=== PATIENT | male | born 1985 | race African-American/Black ===

== ENCOUNTER 2018-01-21 19:09 | Observation (INO) | payer SELFPAY ==
[~2018-01-21] VITALS: Ht 185.4 cm; Wt 113.9 kg
[~2018-01-21 19:09] MED LIST: AGM875 PO
[2018-01-21] MEDS ORDERED: ONDANSETRON INJ 2 MG/ML 2 ML VIAL IV STA (20:34)
[2018-01-21] MEDS ORDERED: MoRPHine SULFATE 10 MG/ML CARP/VIAL IV STA (20:34)
[2018-01-21] MEDS ORDERED: SODIUM CHLORIDE 0.9% 1000ML 1,000 ML IV ONE (20:45)
--- NOTE | 2018-01-21 21:20 | DIAGNOSTIC IMAGING REPORT ---
CT SCAN OF THE ABDOMEN AND PELVIS WITHOUT CONTRAST CLINICAL HISTORY: Right flank pain COMPARISON STUDY: No previous studies for comparison. TECHNIQUE: CT scan of the abdomen and pelvis was performed from the lung bases to the proximal femurs. Images are reviewed in the axial, sagittal, and coronal planes. IV contrast was not administered for this examination. A dose lowering technique was utilized adhering to the principles of ALARA. CT DOSE: 1732.67 mGy.cm FINDINGS: Lower chest: The heart is normal in size and configuration, without pericardial effusion. The lung bases and pleural spaces are clear. Liver: The unenhanced liver is normal in size, contour, and attenuation. There is no intrahepatic biliary ductal dilatation. Gallbladder: Unremarkable. Spleen: Normal in size and attenuation. Pancreas: Unremarkable. Adrenal glands: Unremarkable. Kidneys: No renal, ureteral, or bladder calculi are visualized. There is no hydronephrosis. Bowel: There are no transition zones indicate bowel obstruction. There is no acute diverticulitis. There is a dilated fluid-filled appendix measuring 14 mm. Is contains an appendicolith. There is periappendiceal stranding. The findings are indicative of acute appendicitis. Peritoneum: There is minimal free pelvic fluid. No free intraperitoneal air is visualized Vasculature: The abdominal aorta is normal in course and caliber. Adenopathy: None. Pelvic viscera: The bladder, and pelvic viscera are unremarkable. Skeletal structures: No destructive osseous lesions are seen. IMPRESSION: 1. Dilated fluid-filled appendix with an appendicolith and periappendiceal stranding. The findings are indicative of acute appendicitis and surgical consultation is recommended 2. No renal, ureteral, or bladder calculi identified 3. No evidence of bowel obstruction. No evidence of free air Electronically signed by: Michele Luna M.D. 01/21/2018 9:19 PM Dictated Date/Time: 01/21/2018 9:14 PM
[2018-01-21] MEDS ORDERED: CEFOXITIN SOD 2 GM VIAL IV STA (21:35)
[2018-01-21 21:45] LABS: BASO % 0.1 %; BASO ABS # 0.01 K/uL (0-0.2); EOS % 0.1 %; EOS ABS # 0.01 K/uL (0-0.5); HEMATOCRIT 40.1 % (42-52); HEMOGLOBIN 13.7 g/dL (14.0-18.0); IG# 0.02 K/uL (0.00-0.02); LYMPH % 8.5 %; LYMPH ABS # 0.68 K/uL (1.2-3.4); MEAN CELL VOLUME 84.2 fL (80-100); MEAN CORPUSCULAR HEMOGLOBIN 28.8 pg (25-34); MEAN CORPUSCULAR HGB CONC 34.2 g/dl (32-36); MONO % 2.1 %; MONO ABS # 0.17 K/uL (0.11-0.59); NEUT % 88.9 %; NEUT ABS # 7.11 K/uL (1.4-6.5); PLATELET COUNT 273 K/uL (130-400); RED CELL DISTRIBUTION WIDTH CV 13.7 % (11.5-14.5); RED CELL DISTRIBUTION WIDTH SD 41.8 fL (36.4-46.3)
[2018-01-21] MEDS ORDERED: MoRPHine SULFATE 4 MG/ML 1 ML CARP\\VIAL IV ONE (21:45)
[2018-01-21] MEDS ORDERED: HYDROmorphone INJ 2 MG/ML SYR/VIAL IV PRN ×2 (22:00→23:30)
[2018-01-21] MEDS ORDERED: ONDANSETRON INJ 2 MG/ML 2 ML VIAL IV PRN ×2 (22:00→23:30)
[2018-01-21] MEDS ORDERED: PHENYLEPHRINE 100MCG/ML 5ML SYR IV PRN (22:00)
[2018-01-21] MEDS ORDERED: ATROPINE SULFATE 0.1 MG/ML 5ML SYR IV PRN (22:00)
[2018-01-21] MEDS ORDERED: EpHEDrine SULFATE INJ 50 MG/ML AMP IV PRN (22:00)
--- NOTE | 2018-01-21 22:01 | History and Physical ---
History & Physical Date Jan 21, 2018. Chief Complaint Acute Appendicitis History of Present Illness The patient is a 32 year old male with complaints of abdominal pain which began today around 2pm. Patient reports he last ate at 1pm and the pain started in his periumbilical area soon after. States the pain is currently periumbilical and RLQ. Reports nausea/vomiting earlier today. Denies hematemesis. Denies fever /chills. He has been urinating and moving his bowels without issue. Denies previous abdominal surgeries. Denies regular medication use or other health problems. Reports no issues with anesthesia in the past (wisdom teeth). Denies use of blood thinning or anticoagulant medications. WBC WNL w/ left shift. CT shows 14mm dilated appendix with periappendiceal stranding and appendicolith. Findings concerning for acute appendicitis Additional History Hepatic Disease: No Endocrine Disorder: No Kidney Disease: No Hypertension: No Heart Disease: No Bleeding Tendencies: No Infectious Diseases: No Allergies Coded Allergies: No Known Allergies (Unverified Allergy, Mild, 11/12/07) Home Medications Scheduled Amoxicillin/Clavulanate Potas (Augmentin *), 1 TAB PO BID Miscellaneous Medications None (Patient States No Home Meds) Physical Examination Skin: warm/dry Head: normocephalic, atraumatic Neck: trachea midline Respiratory/Chest: normal breath sounds, no respiratory distress Cardiovascular: regular rate, rhythm, no murmur Abdomen / GI: normal bowel sounds, + pertinent finding (periumbilical and RLQ TTP) Neurologic/Psych: alert, oriented x 3 Diagnosis Acute Appendicitis ASA Classification: ASA Class I Plan of Treatment Laparoscopic appendectomy possible open with Dr. Augusto geller. Risks, benefits, alternatives to the procedure discussed - questions answered. NPO, IV Mefoxin 2g, SCDs. OR notified.
[2018-01-21] MEDS ORDERED: BUPIVACAINE/EPINEPHRINE 0.5% MPF 1:200,000 30 ML VIAL ONE (22:03)
[2018-01-21 22:06] LABS: ALBUMIN 4.1 gm/dl (3.4-5.0); CALCIUM 9.4 mg/dl (8.5-10.1); CREATININE 1.04 mg/dl (0.60-1.40); POTASSIUM 3.4 mmol/L (3.5-5.1)
[2018-01-21] MEDS ORDERED: LIDOCAINE HCL 2% 2 ML VIAL (20MG/ML) ONE (22:06)
[2018-01-21] MEDS ORDERED: PROPOFOL IV EMULSION 10 MG/ML 20 ML VIAL IV ONE (22:06)
[2018-01-21] MEDS ORDERED: FENTANYL CITRATE INJ 50 MCG/1 ML 2 ML VIAL ONE (22:06)
[2018-01-21] MEDS ORDERED: ROCURONIUM BROMID 50MG/5ML SYR ONE (22:07)
[2018-01-21] MEDS ORDERED: SUCCINYLCHOLINE 100MG/5ML SYR IV ONE (22:07)
--- NOTE | 2018-01-21 23:03 | EMERGENCY ROOM VISIT NOTE ---
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 History of Present Illness The patient is a 32 year old male who presents to the Emergency Room with complaints of abdominal pain around his marika that began about 6-1/2 hours ago at 2 PM. Patient states that he had lunch today around 1 PM, and shortly thereafter began having some cramping pain in his abdomen. He had a little bit of nausea but no vomiting or diarrhea. He is not taking anything for the pain which he currently rates an 8/10. At times the pain will be worse on the right, but it does not cross over to the left. The patient has never had abdominal surgery in the past. No history of kidney stones. No difficulty with urinating or using the bathroom. He does not take blood thinners. He does not have history of chronic medical disease. Review of Systems More than 10 systems were reviewed and otherwise negative with the exception of history of present illness. Past Medical/Surgical History No chronic medical disease Family History No pertinent family history Social History Smoking Status: Never Smoker Housing Status: lives with friends Current/Historical Medications Scheduled Amoxicillin/Clavulanate Potas (Augmentin *), 1 TAB PO BID Miscellaneous Medications None (Patient States No Home Meds) Physical Exam Vital Signs Date Time Temp Pulse Resp B/P (MAP) Pulse Ox O2 Delivery O2 Flow Rate FiO2 01/21/18 21:37 81 18 137/84 98 Room Air 01/21/18 19:26 36.7 73 20 131/70 98 Room Air Physical Exam VITALS: Vitals are noted on the nurse's note and reviewed by myself. Vital signs stable. GENERAL: Well-developed, well-nourished, male who appears in moderate to severe discomfort secondary to his abdominal discomfort. He is holding his abdomen with his right hand. He is cooperative with the exam. NECK: Supple without nuchal rigidity. No lymphadenopathy. No thyromegaly. Cervical spine is nontender. HEART: Regular rate and rhythm without murmurs gallops or rubs. LUNGS: Clear to auscultation bilaterally without wheezes, rales or rhonchi. No retractions or accessory muscle use. ABDOMEN: Positive normal bowel sounds x 4. Soft with diffuse right-sided right lower quadrant abdominal pain. No rebound or guarding. No CVA tenderness. MUSCULOSKELETAL: No muscle atrophy, erythema, or edema noted. Full range of motion in all extremities. Medical Decision & Procedures ER Provider Diagnostic Interpretation: CT SCAN OF THE ABDOMEN AND PELVIS WITHOUT CONTRAST CLINICAL HISTORY: Right flank pain COMPARISON STUDY: No previous studies for comparison. TECHNIQUE: CT scan of the abdomen and pelvis was performed from the lung bases to the proximal femurs. Images are reviewed in the axial, sagittal, and coronal planes. IV contrast was not administered for this examination. A dose lowering technique was utilized adhering to the principles of ALARA. CT DOSE: 1732.67 mGy.cm FINDINGS: Lower chest: The heart is normal in size and configuration, without pericardial effusion. The lung bases and pleural spaces are clear. Liver: The unenhanced liver is normal in size, contour, and attenuation. There is no intrahepatic biliary ductal dilatation. Gallbladder: Unremarkable. Spleen: Normal in size and attenuation. Pancreas: Unremarkable. Adrenal glands: Unremarkable. Kidneys: No renal, ureteral, or bladder calculi are visualized. There is no hydronephrosis. Bowel: There are no transition zones indicate bowel obstruction. There is no acute diverticulitis. There is a dilated fluid-filled appendix measuring 14 mm. Is contains an appendicolith. There is periappendiceal stranding. The findings are indicative of acute appendicitis. Peritoneum: There is minimal free pelvic fluid. No free intraperitoneal air is visualized Vasculature: The abdominal aorta is normal in course and caliber. Adenopathy: None. Pelvic viscera: The bladder, and pelvic viscera are unremarkable. Skeletal structures: No destructive osseous lesions are seen. IMPRESSION: 1. Dilated fluid-filled appendix with an appendicolith and periappendiceal stranding. The findings are indicative of acute appendicitis and surgical consultation is recommended 2. No renal, ureteral, or bladder calculi identified 3. No evidence of bowel obstruction. No evidence of free air Laboratory Results 01/21/18 21:00 Red Blood Count 4.76, Mean Corpuscular Volume 84.2, Mean Corpuscular Hemoglobin 28.8, Mean Corpuscular Hemoglobin Concent 34.2, Mean Platelet Volume 9.0, Neutrophils (%) (Auto) 88.9, Lymphocytes (%) (Auto) 8.5, Monocytes (%) (Auto) 2.1, Eosinophils (%) (Auto) 0.1, Basophils (%) (Auto) 0.1, Neutrophils # (Auto) 7.11, Lymphocytes # (Auto) 0.68, Monocytes # (Auto) 0.17, Eosinophils # (Auto) 0.01, Basophils # (Auto) 0.01 01/21/18 21:00 Test 01/21/18 21:00 01/21/18 21:30 White Blood Count 8.00 K/uL (4.8-10.8) Red Blood Count 4.76 M/uL (4.7-6.1) Hemoglobin 13.7 g/dL (14.0-18.0) Hematocrit 40.1 % (42-52) Mean Corpuscular Volume 84.2 fL (80-100) Mean Corpuscular Hemoglobin 28.8 pg (25-34) Mean Corpuscular Hemoglobin Concent 34.2 g/dl (32-36) Platelet Count 273 K/uL (130-400) Mean Platelet Volume 9.0 fL (7.4-10.4) Neutrophils (%) (Auto) 88.9 % Lymphocytes (%) (Auto) 8.5 % Monocytes (%) (Auto) 2.1 % Eosinophils (%) (Auto) 0.1 % Basophils (%) (Auto) 0.1 % Neutrophils # (Auto) 7.11 K/uL (1.4-6.5) Lymphocytes # (Auto) 0.68 K/uL (1.2-3.4) Monocytes # (Auto) 0.17 K/uL (0.11-0.59) Eosinophils # (Auto) 0.01 K/uL (0-0.5) Basophils # (Auto) 0.01 K/uL (0-0.2) RDW Standard Deviation 41.8 fL (36.4-46.3) RDW Coefficient of Variation 13.7 % (11.5-14.5) Immature Granulocyte % (Auto) 0.3 % Immature Granulocyte # (Auto) 0.02 K/uL (0.00-0.02) Anion Gap 8.0 mmol/L (3-11) Est Creatinine Clear Calc Drug Dose 136.1 ml/min Estimated GFR () 110.4 Estimated GFR (Non- 95.2 BUN/Creatinine Ratio 13.7 (10-20) Calcium Level 9.4 mg/dl (8.5-10.1) Total Bilirubin 0.4 mg/dl (0.2-1) Aspartate Amino Transf (AST/SGOT) 17 U/L (15-37) Alanine Aminotransferase (ALT/SGPT) 26 U/L (12-78) Alkaline Phosphatase 62 U/L (45-117) Total Protein 8.0 gm/dl (6.4-8.2) Albumin 4.1 gm/dl (3.4-5.0) Globulin 3.9 gm/dl (2.5-4.0) Albumin/Globulin Ratio 1.1 (0.9-2) Lipase 144 U/L (73-393) Urine Color YELLOW Urine Appearance CLOUDY (CLEAR) Urine pH 7.0 (4.5-7.5) Urine Specific [place] 1.033 (1.000-1.030) Urine Protein NEG (NEG) Urine Glucose (UA) NEG (NEG) Urine Ketones NEG (NEG) Urine Occult Blood NEG (NEG) Urine Nitrite NEG (NEG) Urine Bilirubin NEG (NEG) Urine Urobilinogen NEG (NEG) Urine Leukocyte Esterase TRACE (NEG) Urine WBC (Auto) 5-10 /hpf (0-5) Urine RBC (Auto) 0-4 /hpf (0-4) Urine Hyaline Casts (Auto) 1-5 /lpf (0-5) Urine Epithelial Cells (Auto) >30 /lpf (0-5) Urine Bacteria (Auto) NEG (NEG) Urine Renal Epithelial Cells /lpf (0-5) Medications Administered Medications (Trade) Dose Ordered Sig/Sharmila Route Start Time Stop Time Status Last Admin Dose Admin Morphine Sulfate (MoRPHine SULFATE INJ) 8 mg NOW STAT IV 01/21/18 20:34 01/21/18 20:36 DC 01/21/18 20:57 8 MG Sodium Chloride 1,000 ml @ 999 mls/hr Q1H1M ONCE IV 01/21/18 20:45 01/21/18 21:45 DC 01/21/18 20:58 999 MLS/HR Ondansetron HCl (Zofran Inj) 4 mg NOW STAT IV 01/21/18 20:34 01/21/18 20:37 DC 01/21/18 20:57 4 MG Morphine Sulfate (MoRPHine SULFATE INJ) 4 mg NOW ONCE IV 01/21/18 21:45 01/21/18 21:46 DC 01/21/18 21:49 4 MG ED Course Physical exam and history were performed. Nursing notes, EMR, and Medication List were personally reviewed. Patient appears to have abdominal pain that began several hours ago. The patient states that most of his pain is in the periumbilical area, however he is tender in the right side and right lower quadrant on exam. IV access was established and labs were obtained. The patient was given IV morphine, IV Zofran, and IV fluids. CT scan was performed and the patient was placed n.p.o. The patient's blood work is as above and was reviewed. He does not have a significantly elevated white blood cell count at this time, but he does have a left shift. He does not have a significant anemia or gross electrolyte imbalance. Lipase and transaminases are not diagnostic. His CT scan reveals a 14 mm appendix with appendicolith, very concerning for acute appendicitis. The case was discussed with the on-call surgical team. The patient will be started on Mefoxin, and the surgical team will evaluate the patient here in the department. Please see their dictation for further patient course, plan, and disposition. The chart was completed utilizing [employer] Speech Voice Recognition Software. Grammatical errors, random word insertions, pronoun errors, and incomplete sentences are an occasional consequence of this system due to software limitations, ambient noise, and hardware issues. Any formal questions or concerns about the content, text, or information contained within the body of this dictation should be directly addressed to the provider for clarification. . Medical Decision Differential diagnosis: Etiologies such as appendicitis, diverticulitis, PUD, biliary pathology, UTI, pancreatitis, obstruction, mesenteric ischemia, aortic pathology, infections, inflammatory bowel disease, renal colic, as well as others were entertained. Impression Primary Impression: Acute appendicitis Departure Information Referrals Hima Livingston MD (PCP) Patient Instructions My [facility]
--- NOTE | 2018-01-21 23:09 | [facility] Post Operative Brief Note ---
Immediate Operative Summary Operative Date Jan 21, 2018. Pre-Operative Diagnosis Acute Appendicitis Post-Operative Diagnosis Acute Appendicitis Procedure(s) Performed Laparoscopic Appendectomy Surgeon Dr. Casas Workers Compensation Claims Analyst Surgeon(s) En Holm PA-C Estimated Blood Loss 10cc Findings Consistent with Post-Op Diagnosis Specimens A. Appendix Anesthesia Type General Complication(s) none
--- NOTE | 2018-01-21 23:18 | [facility] Operative Report ---
Operative Report Operative Date Jan 21, 2018. Pre-Operative Diagnosis Acute Appendicitis Post-Operative Diagnosis Acute Appendicitis Procedure(s) Performed Laparoscopic Appendectomy Surgeon Dr. Casas Reinsurance Claims Analyst Surgeon(s) En Holm PA-C Estimated Blood Loss 10cc Specimens A. Appendix Anesthesia Type General Complication(s) none Description of Procedure After informed consent was obtained the patient was taken to the operating room and placed in supine position. After successful intubation a Rojas catheter was placed and the left arm was tucked. A Rojas catheter was inserted sterilely. I began by making a periumbilical incision with an 11 blade scalpel and carried this down through the soft tissue using electrocautery. The anterior rectus fascia was opened using electrocautery and 2 #0 Vicryl stay sutures were placed. The peritoneum was elevated using hemostats and incised under direct vision using a Metzenbaum scissor. A finger sweep was performed. A 12 mm Rizzo trocar was placed and the abdomen was insufflated to 18 mmHg. A laparoscope was inserted and the abdomen was examined in 360. A suprapubic 5 mm port and a left lower quadrant 12 mm port were placed under direct vision. The patient was air planed to the left as well as placed in a slight Trendelenburg position. We began by looking in the right lower quadrant. We were able to readily identify the appendix and it was grossly inflamed. It had not perforated. There is a small amount of purulent fluid in the right lower quadrant and the pelvis. We immediately irrigated and suctioned this out. I was able to use primarily blunt dissection to pull the appendix away from the right lower quadrant sidewall. I was then able to use a SANJAY brown cartridge stapler to transect the mesentery of the appendix. I was then able to mobilize the appendix and transect it with a brown cartridge 60 mm SANJAY at its base with the cecum. It was then placed into an Endo Catch bag and removed from the camera port site. We thoroughly irrigated the right lower quadrant as well as the pelvis. There was adequate hemostasis. I ran the small bowel backwards from the terminal ileum for about 6 feet all of which was normal. All the peritoneal surfaces were normal. Small/ large bowel, liver, stomach etc. all appeared grossly normal. We did a final irrigation and then removed all the trochars and desufflated the abdomen. The fascia of the camera port as well as the left lower quadrant were closed using 0 Vicryl in [id number] fashion. Wounds were all irrigated and closed using 4-0 Monocryl. Marcaine was injected around them for postoperative analgesia and skin glue used as a dressing. The patient was awakened extubated and transferred to recovery in stable condition. My physician's customer assistant was present through the entire case. he assisted with prepping the patient and helped with exposure for port placement, helped run the camera and helped with fascial/wound closure at the end of the procedure as well as dressing placement. I attest to the content of the Intraoperative Record and any orders documented therein. Any exceptions are noted below. I attest to the content of the Intraoperative Record and any orders documented therein. Any exceptions are noted below.
[2018-01-21] MEDS ORDERED: HYDROCODONE/ACETAMIN 5/325MG TAB PO PRN (23:30)
--- NOTE | 2018-01-21 23:36 | Anesthesiology Progress Note ---
Anesthesia Post Op Note Date & Time Jan 21, 2018 at 23:35 Vital Signs Pain Intensity: 0 Vital Signs Past 12 Hours Date Time Temp Pulse Resp B/P (MAP) Pulse Ox O2 Delivery O2 Flow Rate FiO2 01/21/18 21:37 81 18 137/84 98 Room Air 01/21/18 19:26 36.7 73 20 131/70 98 Room Air Notes Mental Status: alert / awake / arousable, participated in evaluation Pt Amnestic to Procedure: Yes Nausea / Vomiting: adequately controlled Pain: adequately controlled Airway Patency, RR, SpO2: stable & adequate BP & HR: stable & adequate Hydration State: stable & adequate Anesthetic Complications: no major complications apparent
--- NOTE | 2018-01-21 23:41 | Discharge Instructions ---
Discharge Instructions Date of Service Jan 21, 2018. Admission Reason for Admission: Stomach Pain Discharge Discharge Diagnosis / Problem: Acute Appendicitis Discharge Goals Goal(s): Decrease discomfort, Improve function Activity Recommendations Activity Limitations: as noted below Lifting Limitations: no more than 10 pounds, until after follow-up appointment Exercise/Sports Limitations: until after follow-up appointment May Resume Sexual Activity: after follow-up appointment Shower/Bathe: tomorrow Driving or Machine Use: resume 3 days after discharge (Please do not drive while using narcotic pain medication) . Instructions / Follow-Up Instructions / Follow-Up You have surgical glue covering your incisions. Please allow this to fall off on its own. You have been prescribed [place] to take as needed for pain relief. Please use as directed. Follow-up with Dr. Casas in 1-2 weeks. Please contact our office at to schedule an appointment if you have not done so already. Please contact our office with any further questions or concerns. [facility] [place] [employer]. [address] [place] [address]. Current Hospital Diet Patient's current hospital diet: Clear Liquid Diet Discharge Diet Recommended Diet: Regular Diet Procedures Procedures Performed: Laparoscopic Appendectomy Pending Studies Studies pending at discharge: yes List of pending studies: pathology Medical Emergencies . Who to Call and When: Medical Emergencies: If at any time you feel your situation is an emergency, please call 911 immediately. . Non-Emergent Contact Non-Emergency issues call your: Primary Care Provider, Surgeon Call Non-Emergent contact if: you have a fever, temperature is above 101.5, your pain is not controlled, your pain is worsening, wound has increased drainage, wound has increased redness . "Provider Documentation" section prepared by En Holm. . [place] Drug Monitoring Program Search Results: patient reviewed within database, no issues identified
[2018-01-22] VITALS (8 sets, daily range): BP systolic 112–143; BP diastolic 62–73; PULSE 59–83; TEMP 36.9–37.3; O2SAT 93–98; Ht 185.4 cm; Wt 113.9 kg
[2018-01-22] MEDS ORDERED: ACETAMINOPHEN IV 100 ML IV SCH
[2018-01-22] MEDS ORDERED: LACTATED RINGER'S 1000ML 1,000 ML IV SCH (01:00)
[2018-01-22] MEDS: ACETAMINOPHEN IV 100 ML IV SCH ×2 (01:04→07:42)
[2018-01-22] MEDS ORDERED: IV FLUIDS COMPLETED PRN (01:45)
[2018-01-22] MEDS: HYDROmorphone INJ 0.5 MG/0.5 ML SYR IV PRN ×2 (02:14→06:07)
[2018-01-22] MEDS: CEFOXITIN IV 2,000 MG in DEXTROSE 5% 50ML 50 ML IV SCH ×2 (04:38→11:03)
[2018-01-22 05:23] LABS: BASO % 0.2 %; BASO ABS # 0.01 K/uL (0-0.2); EOS % 0.2 %; EOS ABS # 0.01 K/uL (0-0.5); HEMATOCRIT 38.8 % (42-52); HEMOGLOBIN 13.3 g/dL (14.0-18.0); IG# 0.01 K/uL (0.00-0.02); LYMPH % 24.2 %; LYMPH ABS # 1.53 K/uL (1.2-3.4); MEAN CELL VOLUME 83.6 fL (80-100); MEAN CORPUSCULAR HEMOGLOBIN 28.7 pg (25-34); MEAN CORPUSCULAR HGB CONC 34.3 g/dl (32-36); MEAN PLATELET VOLUME 8.6 fL (7.4-10.4); MONO % 5.1 %; MONO ABS # 0.32 K/uL (0.11-0.59); NEUT % 70.1 %; NEUT ABS # 4.43 K/uL (1.4-6.5); PLATELET COUNT 236 K/uL (130-400); RED CELL DISTRIBUTION WIDTH CV 13.7 % (11.5-14.5); RED CELL DISTRIBUTION WIDTH SD 41.3 fL (36.4-46.3); WHITE BLOOD COUNT 6.31 K/uL (4.8-10.8)
[2018-01-22] MEDS ORDERED: HYDR-5688 PO (06:14)
--- NOTE | 2018-01-22 06:28 | Surgery Progress Note ---
Surgery Progress Note Date of Service Jan 22, 2018. Subjective Post OP Day: 1 + feeling well, + ambulating, + pain controlled, + diet (Tolerating clears), No complaints, No bowel movement, No flatus, No nausea, No vomiting Objective Vital Signs: Date Time Temp Pulse Resp B/P (MAP) Pulse Ox O2 Delivery O2 Flow Rate FiO2 01/22/18 03:15 36.9 83 16 112/62 (79) 98 Room Air 01/22/18 02:20 36.9 75 16 118/72 Room Air 01/22/18 02:15 36.9 75 16 118/72 (87) 97 Room Air 01/22/18 01:15 37.3 82 18 120/73 (89) 97 Room Air 01/22/18 01:00 Room Air 01/22/18 00:45 37.0 59 16 126/66 (86) 93 Room Air 01/22/18 00:15 36.9 72 16 143/73 (96) 96 Room Air 01/22/18 00:15 96 Room Air 01/22/18 00:02 36.7 70 18 114/66 96 Room Air 01/21/18 23:52 78 18 121/66 97 Room Air 01/21/18 23:45 79 18 116/61 97 Room Air 01/21/18 23:40 72 18 115/61 99 Nasal Cannula 2 01/21/18 23:35 81 18 116/59 98 Nasal Cannula 4 01/21/18 23:30 36.7 88 18 114/58 100 Nasal Cannula 4 01/21/18 21:37 81 18 137/84 98 Room Air 01/21/18 19:26 36.7 73 20 131/70 98 Room Air General Appearance: WD/WN, no apparent distress Head: normocephalic, atraumatic Neck: trachea midline Respiratory/Chest: no respiratory distress, no accessory muscle use Abdomen: soft, no organomegaly, no pulsatile mass, + distended (mild), + tenderness (Incisional) Incision(s): clean, dry, intact, no erythema, no drainage Laboratory Results: Results Past 24 Hours Test 01/21/18 21:00 01/21/18 21:30 01/22/18 05:10 Range/Units White Blood Count 8.00 6.31 4.8-10.8 K/uL Red Blood Count 4.76 4.64 4.7-6.1 M/uL Hemoglobin 13.7 13.3 14.0-18.0 g/dL Hematocrit 40.1 38.8 42-52 % Mean Corpuscular Volume 84.2 83.6 80-100 fL Mean Corpuscular Hemoglobin 28.8 28.7 25-34 pg Mean Corpuscular Hemoglobin Concent 34.2 34.3 32-36 g/dl Platelet Count 273 236 130-400 K/uL Mean Platelet Volume 9.0 8.6 7.4-10.4 fL Neutrophils (%) (Auto) 88.9 70.1 % Lymphocytes (%) (Auto) 8.5 24.2 % Monocytes (%) (Auto) 2.1 5.1 % Eosinophils (%) (Auto) 0.1 0.2 % Basophils (%) (Auto) 0.1 0.2 % Neutrophils # (Auto) 7.11 4.43 1.4-6.5 K/uL Lymphocytes # (Auto) 0.68 1.53 1.2-3.4 K/uL Monocytes # (Auto) 0.17 0.32 0.11-0.59 K/uL Eosinophils # (Auto) 0.01 0.01 0-0.5 K/uL Basophils # (Auto) 0.01 0.01 0-0.2 K/uL RDW Standard Deviation 41.8 41.3 36.4-46.3 fL RDW Coefficient of Variation 13.7 13.7 11.5-14.5 % Immature Granulocyte % (Auto) 0.3 0.2 % Immature Granulocyte # (Auto) 0.02 0.01 0.00-0.02 K/uL Sodium Level 134 136-145 mmol/L Potassium Level 3.4 3.5-5.1 mmol/L Chloride Level 101 98-107 mmol/L Carbon Dioxide Level 25 21-32 mmol/L Anion Gap 8.0 3-11 mmol/L Blood Urea Nitrogen 14 7-18 mg/dl Creatinine 1.04 0.60-1.40 mg/dl Est Creatinine Clear Calc Drug Dose 136.1 ml/min Estimated GFR () 110.4 Estimated GFR (Non- 95.2 BUN/Creatinine Ratio 13.7 10-20 Random Glucose 126 70-99 mg/dl Calcium Level 9.4 8.5-10.1 mg/dl Total Bilirubin 0.4 0.2-1 mg/dl Aspartate Amino Transf (AST/SGOT) 17 15-37 U/L Alanine Aminotransferase (ALT/SGPT) 26 12-78 U/L Alkaline Phosphatase 62 45-117 U/L Total Protein 8.0 6.4-8.2 gm/dl Albumin 4.1 3.4-5.0 gm/dl Globulin 3.9 2.5-4.0 gm/dl Albumin/Globulin Ratio 1.1 0.9-2 Lipase 144 73-393 U/L Urine Color YELLOW Urine Appearance CLOUDY CLEAR Urine pH 7.0 4.5-7.5 Urine Specific [place] 1.033 1.000-1.030 Urine Protein NEG NEG Urine Glucose (UA) NEG NEG Urine Ketones NEG NEG Urine Occult Blood NEG NEG Urine Nitrite NEG NEG Urine Bilirubin NEG NEG Urine Urobilinogen NEG NEG Urine Leukocyte Esterase TRACE NEG Urine WBC (Auto) 5-10 0-5 /hpf Urine RBC (Auto) 0-4 0-4 /hpf Urine Hyaline Casts (Auto) 1-5 0-5 /lpf Urine Epithelial Cells (Auto) >30 0-5 /lpf Urine Bacteria (Auto) NEG NEG Urine Renal Epithelial Cells 0-5 /lpf Assessment & Plan POD #1 s/p lap appy Doing well, Pain controlled. Tolerating clears, No N/V. Urinating okay. Full liquids this AM - ADAT. Probable d/c later today if tolerating some foods and continuing to do well. Will Discuss findings with Dr. Casas. Please contact with questions or concerns.
[2018-01-22] MEDS: HYDROCODONE/ACETAMIN 5/325MG TAB PO PRN ×2 (07:45→13:33)
--- NOTE | 2018-01-23 22:36 | Discharge Summary ---
Discharge Summary Date of Service Jan 23, 2018. Admission Date/Reason Jan 21, 2018 at 23:34 Acute Appendicitis. Discharge Date/Disposition Jan 22, 2018 Home Diagnosis Principal Diagnosis: Acute Appendicitis Procedure(s) Performed Laparoscopic Appendectomy Medication Reconciliation [place] 5mg/325mg 1-2 Tablets PO Q4H PRN for pain x 3 days. Disp: 30 Tablets. Admission Physical Exam As per Admitting History & Physical. Hospital Course 01/21/18: Patient is a 32M who presented to the ED this evening with abdominal pain beginning around 2pm. The pain presented in his RLQ and periumbilical area. WBC WNL with left shift. CT showed a 14mm dilated appendix, periappendiceal stranding and appendicolith. Findings concerning for acute appendicitis. At this time it was decided to take the patient to the OR for laparoscopic appendectomy, possible open with Dr. Augusto geller. The procedure was performed successfully without complications. The patient was then taken to the ICU for post-op recovery and then admitted on observation to med/surg for post- op care. 01/22/18: Today the patient is doing well, pain controlled, tolerating clears, urinating without issue. His diet was advanced to full liquids for breakfast which he tolerated. His diet was further advanced to a regular diet for lunch which he tolerated as well. Patient was discharged this afternoon after he was tolerating foods. He was sent home with a prescription for [place] to take as needed for pain relief. He was given instructions on limitations and wound care. Patient was also sent home with instructions to follow-up with Dr. Casas in the general surgery clinic. Discharge Instructions Please refer to the electronic Patient Visit Report (Discharge Instructions) for additional information.
== END 2018-01-22 14:05 | disposition home or self-care (01) ==
LOC: C.EDB 19:10 → C.MSN 23:34 → ENRESERV 23:49
PROVIDERS: ADMIT Surgery; ATTEND Surgery
DX: K35.80 Unspecified acute appendicitis (principal)